=== PATIENT | male | born 1980 | race Caucasian/White ===

== ENCOUNTER 2019-02-11 10:58 | Emergency (ER) | payer BC ==
[2019-02-11 11:29] VITALS: BP 154/94
[2019-02-11 11:49] LABS: Influenza A Molecular NEGATIVE (Negative); Influenza B Molecular NEGATIVE (Negative)
--- NOTE | 2019-02-11 12:52 | UC ---
Respiratory Complaint HPI - HPI Summary HPI Summary: OVER 1 WEEK OF SORE THROAT, HEAD COLD, CONGESTION, COUGHING, RIGHT EAR PAIN AND OVERALL MALAISE. UP-TO-DATE FLU SHOT. NO FEVER. - History of Current Complaint Chief Complaint: UCRespiratory Stated Complaint: EAR PAIN, SORE THROAT,CHEST CONGESTION Time Seen by Provider: 02/11/19 11:19 Hx Obtained From: Patient Onset/Duration: Gradual Onset, Lasting Days, Still Present Timing: Constant Severity Initially: Moderate Severity Currently: Moderate Pain Intensity: 6 Pain Scale Used: 0-10 Numeric Character: Cough: Nonproductive Aggravating Factors: Nothing Alleviating Factors: Nothing Associated Signs And Symptoms: Positive: URI, Nasal Congestion. Negative: Fever , Chills, Wheezing - Allergies/Home Medications Allergies/Adverse Reactions: Allergies Allergy/AdvReac Type Severity Reaction Status Date / Time No Known Allergies Allergy Verified 01/02/16 18:00 PMH/Surg Hx/FS Hx/Imm Hx Cardiovascular History: Hypertension - Surgical History Surgical History: Yes Surgery Procedure, Year, and Place: tonsil/addnoids - Family History Known Family History: Positive: Cardiac Disease - Social History Alcohol Use: Rare Substance Use Type: None Smoking Status (MU): Former Smoker Review of Systems All Other Systems Reviewed And Are Negative: Yes Constitutional: Positive: Fatigue ENT: Positive: Sore Throat, Ear Ache, Nasal Discharge Respiratory: Positive: Cough Cardiovascular: Positive: Negative Gastrointestinal: Positive: Negative Genitourinary: Positive: Negative Physical Exam Triage Information Reviewed: Yes Appearance: Well-Appearing, No Pain Distress, Well-Nourished Vital Signs: Initial Vital Signs Temp 97.8 F 02/11/19 11:24 Pulse 77 02/11/19 11:24 Resp 20 02/11/19 11:24 BP 154/94 02/11/19 11:24 Pulse Ox 100 02/11/19 11:24 Laboratory Tests 02/11/19 02/11/19 11:33 11:38 Influenza A (Rapid) Negative Influenza B (Rapid) Negative Group A Strep Rapid Negative Vital Signs Reviewed: Yes Eyes: Positive: Conjunctiva Clear ENT: Positive: Hearing grossly normal, Pharynx normal, Other - LEFT TM NORMAL. RIGHT TM DULL, BULGING Neck: Positive: Supple, Nontender, No Lymphadenopathy Respiratory Exam: Normal Cardiovascular Exam: Normal Abdomen Description: Positive: Soft Musculoskeletal: Positive: No Edema Neurological: Positive: Alert Psychological: Negative: Age Appropriate Behavior Skin: Negative: Rashes Respiratory Course/Dx - Course Course Of Treatment: WILL COVER FOR ACUTE RHINOSINUSITIS AND EARLY RIGHT EAR INFECTION WITH AMOXICILLIN TWICE DAILY FOR 10 DAYS. REST, HYDRATE, OTC MEDICATIONS NEEDED. - Differential Dx/Diagnosis Provider Diagnosis: Acute rhinosinusitis Discharge ED - Sign-Out/Discharge Documenting (check all that apply): Patient Departure All imaging exams completed and their final reports reviewed: No Studies - Discharge Plan Condition: Stable Disposition: HOME Prescriptions: Amoxicillin PO (*) [Amoxicillin 500 MG CAP*] 1,000 mg PO Q12H #40 cap Patient Education Materials: Rhinosinusitis (ED) Referrals: Sánchez Alvarado MD [Primary Care Provider] - If Needed Additional Instructions: YOUR SYMPTOMS MAY BE VIRALLY MEDIATED BUT GIVEN THE LENGTH OF TIME YOU HAVE BEEN ILL WE WILL COVER YOU WITH ANTIBIOTICS. IF YOU START THE MEDICINE BE SURE TO TAKE IT FOR THE FULL COURSE. REST, HYDRATE, OTC MEDS NEEDED. SEEK FOLLOW- UP WITH YOUR PCP IF YOU ARE NOT IMPROVING OVER THE NEXT 1-2 WEEKS. USE OTC AFRIN FOR NASAL CONGESTION. 2 SPRAYS IN EACH NOSTRIL TWICE DAILY NEEDED. DO NOT USE FOR MORE THAN 3-4 DAYS IN A ROW TO PREVENT DEVELOPING REBOUND CONGESTION. - Billing Disposition and Condition Condition: STABLE Disposition: Home
== END 2019-02-11 12:05 | disposition home or self-care (01) ==
LOC: UCEAST 10:58
DX: J01.90 Acute sinusitis, unspecified (principal); J02.9 Acute pharyngitis, unspecified; I10 Essential (primary) hypertension; Z87.891 Personal history of nicotine dependence
CPT/HCPCS: 87651; 99212; G0463

== ENCOUNTER 2019-03-16 19:33 | Emergency (ER) | payer BC ==
--- NOTE | 2019-03-16 20:18 | ED ---
Neck Pain - HPI Summary HPI Summary: The patient is a 38 y/o male presenting to [facility] with a chief complaint of neck pain onset around 22:00 on the night of 03/14/2019. He reports that earlier in the day to when the pain began, he had been moving boxes around, but he didnt experience any known trauma to the neck or head at the time. Later that night, he had been at work, and the pain began. The next day, the pain continued and seemed to subside with Ibuprofen and Aspirin use as well as applying heat to the neck, but then the pain returned and has been constant rated 6/10 in severity while at rest. The pain worsened tonight while eating dinner with increased pain with chewing. The pain is aggravated with movement, especially with rotation and lateral movement to the right and somewhat to the left, when pain is rated 10/10. There is no pain with flexion or extension of the neck. He denies any fevers, chills, photophobia, or headache. He has not experienced any recent numbness or weakness but states an episode of numbness to the dorsal aspect of the right foot about six months ago which gradually resolved without treatment. He notes that he is recovering from a recent ear infection on the right. He has not had any previous issues with his neck. PMHx: HTN, kidney stones, T&A. Former smoker, rare EtOH, no substance use. Medications reviewed. Allergies noted. - History of Current Complaint Chief Complaint: EDNeckComplaint Stated Complaint: NECK PAIN PER PT Time Seen by Provider: 03/16/19 19:48 Hx Obtained From: Patient Onset/Duration Of Injury/Symptoms: Days - two Mechanism Of Injury: Other - unknown Timing: Constant Onset/Duration: Gradual Onset, Started days ago, Still Present Severity Initially: Moderate Severity Currently: Severe Pain Intensity: 10 Pain Scale Used: 0-10 Numeric Location: Discrete At: - right worse than left Character: Sharp Aggravating Factors: Movement - to the right and somewhat to the left Alleviating Factors: Other: - Ibuprofen, Aspirin, and head helped initially but not now Associated Signs & Symptoms: Negative: Fever, Weakness, Headache - Allergies/Home Medications Allergies/Adverse Reactions: Allergies Allergy/AdvReac Type Severity Reaction Status Date / Time No Known Allergies Allergy Verified 03/16/19 19:36 PMH/Surg Hx/FS Hx/Imm Hx Endocrine/Hematology History: Denies: Hx Diabetes Cardiovascular History: Reports: Hx Hypertension Denies: Hx Hypercholesterolemia History: Reports: Hx Kidney Stones Neurological History: Reports: Other Neuro Impairments/Disorders - syncope - Surgical History Surgical History: Yes Surgery Procedure, Year, and Place: tonsil/addnoids Infectious Disease History: No Infectious Disease History: Denies: Traveled Outside the [place] in Last 30 Days - Family History Known Family History: Positive: Cardiac Disease - Social History Alcohol Use: Rare Hx Substance Use: No Substance Use Type: Reports: None Hx Tobacco Use: Yes - e-cig Smoking Status (MU): Former Smoker - Additional Comments History Additional Comments: no previous neck injury, tonsillectomy & addenoidectomy Review of Systems - ROS Summary Review of Systems Summary: Home Medications Medication Instructions Recorded Confirmed Type Amoxicillin PO (*) [Amoxicillin 1,000 mg PO Q12H #40 cap 02/11/19 Rx 500 MG CAP*] Negative: Fever, Chills Negative: Photophobia Positive: Myalgia - neck pain worse on right, Decreased ROM - of neck to left and right but not Negative: Headache, Weakness, Numbness All Other Systems Reviewed And Are Negative: Yes Physical Exam - Summary Physical Exam Summary: General: Well-developed, Obese male. Appears to be in moderate discomfort at rest. HEENT: Normocephalic, Atraumatic. Eyes: Conjuctiva normal, PERRL. Oropharynx: Clear, mucous membranes moist, (-) exudates. Neck: Soft, limited ROM, tenderness in the right trapezius, spasm, (-) lymphadenopathy, (-) thyromegaly, (-) JVD. Cardiovascular: Normal sinus rhythm, (-) murmur. Lungs: Clear to auscultation bilaterally (-) wheezes, (-) rales, (-) rhonchi. Abdomen: Soft, non-tender, non-distended, (-) organomegaly, normal bowel sounds. Back: (-) CVA tenderness Extremities: No edema. Skin: Warm, dry, (-) rash. Neuro: Alert and oriented x3, no focal deficits. Psychiatric: Mood normal, Flat affect with limited vocabulary. Triage Information Reviewed: Yes Vital Signs On Initial Exam: Initial Vitals Temp Pulse Resp BP Pulse Ox 98.2 F 82 15 161/95 100 03/16/19 19:34 03/16/19 19:34 01/19/20 19:34 03/16/19 19:34 03/16/19 19:34 Vital Signs Reviewed: Yes Procedures - Sedation Patient Received Moderate/Deep Sedation with Procedure: No Diagnostics - Vital Signs Vital Signs Temp Pulse Resp BP Pulse Ox 03/16/19 19:34 98.2 F 82 15 161/95 100 - Laboratory Lab Statement: Any lab studies that have been ordered have been reviewed, and results considered in the medical decision making process. Re-Evaluation - Re-Evaluation First Eval Re-Evaluation Time: 20:50 Change: Improved Comment: I have discussed results with the patient and neck pain improved with medication. Discussed symptoms that warrant immediate return to ED. Neck Course/Dx - Course Course Of Treatment: 38-year-old male presents with severe right neck pain for 48 hours. He denies any known trauma. States he is packing boxes getting ready to move. Has tried multiple iggu-orf-ryxevsm medications including ibuprofen, naproxen, aspirin. Has tried heat multiple times. No history of neck problems. On physical exam there is significant tenderness to the right trapezius muscle. Normal strength sensation pulses and capillary refills upper extremities bilaterally. Ice pack applied to patients neck. Patient administered Toradol in the ED. Patient given six Valium, six Percocet, and antinflammatories for at-home use, without prescription. Ice and rest at home. Follow-up with PCP. Follow-up sooner for any worsening symptoms. - Diagnoses Provider Diagnoses: Neck pain Discharge ED - Sign-Out/Discharge Documenting (check all that apply): Patient Departure - Patient will be discharged home. - Discharge Plan Condition: Stable Disposition: HOME Patient Education Materials: Neck Pain (ED) Referrals: Sánchez Alvarado MD [Primary Care Provider] - 3 Days Additional Instructions: Please take medications as discussed. Apply ice as needed. Please follow up with your primary care physician within three days. Please return to ED for any new or worsening symptoms. - Billing Disposition and Condition Condition: STABLE Disposition: Home - Attestation Statements Document Initiated by Scribe: Yes Documenting Scribe: Brenda Clark Provider For Whom Lowellibe is Documenting (Include Credential): Dr. Darlene Cabello MD Scribe Attestation: Brenda Rawls, scribed for Dr. Darlene Cabello MD on 03/16/19 at 2203. Scribe Documentation Reviewed: Yes Provider Attestation: The documentation as recorded by the scribe, Brenda Clark accurately reflects the service I personally performed and the decisions made by me, Dr. Darlene Cabello MD Status of Scribe Document: Viewed
[2019-03-16] MEDS ORDERED: Ketorolac *IM* INJ* 60 MG/2 ML VIAL IM ONE (20:31)
[2019-03-16] MEDS ORDERED: oxyCODONE/Acetamin 5/325 MG* TAB PO PRN (20:37)
[2019-03-16] MEDS ORDERED: Diazepam TAB(*) 5 MG PO SCH (21:00)
[2019-03-16 21:22] VITALS: BP 139/87
== END 2019-03-16 21:20 | disposition home or self-care (01) ==
LOC: ED 19:33
DX: M54.2 Cervicalgia (principal); I10 Essential (primary) hypertension; Z87.891 Personal history of nicotine dependence
CPT/HCPCS: 96372; 99282; J1885

== ENCOUNTER 2019-03-19 16:09 | Emergency (ER) | payer BC ==
[2019-03-19 16:52] LABS: ABS Basophils 0.1 10^3/ul (0-0.2); ABS Eosinophils 0.1 10^3/ul (0-0.6); ABS Lymphocytes 1.6 10^3/ul (1.0-4.8); ABS Monocytes 0.7 10^3/ul (0-0.8); ABS Neutrophils 6.9 10^3/ul (1.5-7.7); Eosinophil % 0.6 %; Hematocrit 42 % (42-52); Hemoglobin 15.5 g/dL (14.0-18.0); Lymphocyte % 17.5 %; Mean Corpuscular HGB Conc 37 g/dL (31-36); Mean Corpuscular Hemoglobin 31 pg (27-31); Mean Corpuscular Volume 85 fL (80-94); Mean Platelet Volume 7.3 fL (7.4-10.4); Platelet Count 233 10^3/uL (150-450); Red Blood Count 4.94 10^6 /uL (4.18-5.48); Red Cell Distribution Width 13 % (10-15); White Blood Count 9.3 10^3/uL (3.5-10.8)
[2019-03-19 16:54] LABS: INR 1.07 (0.82-1.09)
[2019-03-19 17:02] LABS: Albumin 4.2 g/dL (3.2-5.2); Albumin/Globulin Ratio 1.2 (1-3); BUN/Creatinine Ratio 6.9 (8-20); Calcium 9.8 mg/dL (8.6-10.3); EGFR African American 99.5 (>60); EGFR Non-African American 82.2 (>60); Globulin 3.6 g/dL (2-4); Potassium 4.2 mmol/L (3.5-5.0); Total Bilirubin 0.6 mg/dL (0.2-1.0); Total Protein 7.8 g/dL (6.4-8.9)
--- OUTSIDE RECORDS SUMMARY | 2019-03-19 17:03 | XMS REPORT | Summary of Care ---
:1980 Author Organization [facility] Address [address] [address] Care Team Providers Name Role Phone Sánchez Alvarado Maximiliano Primary Care Provider Reason for Visit Reason Comments Neck Pain right side neck pain 5 days. pt went to ER sunday night. he received valium and toradol but has not had much relief. also received percocet. neck is still stiff and unablef to turn head jay the left. Encounter Details Date Type Department Care Team Description 03/18/2019 Office Visit [place] Malia Hassan, Neck muscle spasm ( Primary Dx); Practice PA-C Ear pain, right [address] [place], [place] [id number] [place] [id number] [phone] Allergies No Known Allergiesdocumented as of this encounter (statuses as of 03/18/2019) Medications Medication Sig Dispensed Refills Start Date End Date Status diazepam (VALIUM) 5 Take 5 mg by 0 Active MG Oral Tab mouth EVERY SIX HOURS NEEDED for Anxiety . OXYcodone-acetaminop Take 1 Tab 0 Active hen (PERCOCET) 5-325 by mouth MG Oral Tab EVERY FOUR HOURS NEEDED for Pain. cyclobenzaprine Take 1 Tab 20 Tab 0 03/18/2019 Active (FLEXERIL) 10 MG by mouth Oral Tab THREE TIMES DAILY NEEDED (neck pain). Tadalafil (CIALIS) Take 1 Tab 12 Tab 5 07/30/2015 Discontinued 20 MG Oral Tab by mouth 0 (Error) DAILY NEEDED (sex). Omeprazole 40 MG Take 1 Cap 30 Cap 5 01/05/2016 Discontinued Oral CAPSULE DELAYED by mouth 0 (Error) RELEASEIndications: DAILY. Acid indigestion ALPRAZolam (XANAX) Take 1 Tab 40 Tab 0 01/28/2016 Discontinued 0.5 MG Oral by mouth 0 (Error) TabIndications: THREE TIMES Situational anxiety DAILY NEEDED for anxiety. Max Daily Amount: 1.5 mg. Loperamide HCl Take by 0 Discontinued (IMODIUM A-D PO) mouth 0 (Error) NEEDED. ondansetron (ZOFRAN) Take 4 mg by 0 Discontinued 4 MG Oral Tab mouth EVERY 0 (Error) EIGHT HOURS NEEDED for nausea. documented as of this encounter (statuses as of 03/18/2019) Active Problems Problem Noted Date Essential hypertension, benign 10/31/2013 Obesity (BMI 30-39.9) 06/21/2012 Overview: bmi 34 10/2013 documented as of this encounter (statuses as of 03/18/2019) Immunizations Name Administration Dates Next Due Influenza (IM) W/Pres 11/17/2014 documented as of this encounter Social History Tobacco Use Types Packs/Day Years Used Date Former Smoker Smokeless Tobacco: Current User Comments: E-Cig Alcohol Use Drinks/Week oz/Week Comments No Sex Assigned at Date Recorded Not on file Job Start Date Occupation Industry Not on file Not on file Not on file Travel History Travel Start Travel End No recent travel history available. documented as of this encounter Last Filed Vital Signs Vital Sign Reading Time Taken Comments Blood Pressure 150/98 03/18/2019 10:48 AM EST Pulse 97 03/18/2019 10:48 AM EST Temperature 38.3 03/18/2019 10:48 AM EST C (101 F) Respiratory Rate - - Oxygen Saturation 98% 03/18/2019 10:48 AM EST Inhaled Oxygen Concentration - - Weight 107 kg (236 lb) 03/18/2019 10:48 AM EST Height 177.8 cm (5' 10") 03/18/2019 10:48 AM EST Body Mass Index 33.86 03/18/2019 10:48 AM EST documented in this encounter Patient Instructions Patient InstructionsDoMalia roach PA-C - 03/18/2019 10:40 AM ESTEscribed flexeril 10mg up to 3 x daily -- cautioned patient will cause drowsiness Apply heat No strenuous activity x 1 week OTC Ibuprofen 600mg every 6 hrs, take with food Call if not improving or with any questions or concerns documented in this encounter Progress Notes Malia Padilla PA-C - 03/18/2019 10:40 AM EST PATIENT: Keyon Mcgill : 1980 DATE OF SERVICE: 03/18/2019 REFERRING PRACTITIONER: Self-Referred PRIMARY CARE PROVIDER: Sánchez Alvarado CHIEF COMPLAINT: Chief Complaint Patient presents with Neck Pain right side neck pain 5 days. pt went to ER sunday night. he received valium and toradol but has not had much relief. also received percocet. neck is still stiff and unablef to turn head jay the left. Subjective HISTORY OF PRESENT ILLNESS: Keyon Mcgill is a 38-y.o. male who presents with right neck pain x 5 days Went [place] [facility] [place], was given valium and toradol -- minor relief Was given 6 percocet 5/325mg and 6 valium 5mg to use at home Today neck is still stiff, hurts to turn to left, can't find comfortable position Denies recent injury or strenuous activity Has heat and ice -- temporary relief Has been taking OTC aleve and ibuprofen -- temporary relief Denies fever, chills, nausea, vomiting, diarrhea, chest pains, SOB, numbness/ tingling in hands No past medical history on file. No past surgical history on file. No family history on file. Current Outpatient Medications Medication Sig cyclobenzaprine (FLEXERIL) 10 MG Oral Tab Take 1 Tab by mouth THREE TIMES DAILY NEEDED (neck pain). diazepam (VALIUM) 5 MG Oral Tab Take 5 mg by mouth EVERY SIX HOURS NEEDED for Anxiety . OXYcodone-acetaminophen (PERCOCET) 5-325 MG Oral Tab Take 1 Tab by mouth EVERY FOUR HOURS ASNEEDED for Pain. No current facility-administered medications for this visit. No Known Allergies Social History Socioeconomic History Marital status: Spouse name: Not on file Number of children: Not on file Years of education: Not on file Highest education level: Not on file Occupational History Not on file Social Needs Financial resource strain: Not on file Food insecurity Worry: Not on file Inability: Not on file Transportation needs Medical: Not on file Non-medical: Not on file Tobacco Use Smoking status: Former Smoker Smokeless tobacco: Current User Tobacco comment: E-Cig Substance and Sexual Activity Alcohol use: No Drug use: No Sexual activity: Yes Partners: Female Lifestyle Physical activity Days per week: Not on file Minutes per session: Not on file Stress: Not on file Relationships Social connections Talks on phone: Not on file Gets together: Not on file Attends jehovah's witness service: Not on file Active member of club or organization: Not on file Attends meetings of clubs or organizations: Not on file Relationship status: Not on file Intimate partner violence Fear of current or ex partner: Not on file Emotionally abused: Not on file Physically abused: Not on file Forced sexual activity: Not on file Other Topics Concern Back Care Not Asked Bike Helmet Not Asked Blood Transfusions Not Asked Caffeine Concern Not Asked Exercise Yes Hobby Hazards Not Asked International Travel Not Asked Service Not Asked Occupational Exposure Not Asked Seat Belt Not Asked Self-Exams Not Asked Sleep Concern Not Asked Special Diet Not Asked Stress Concern Not Asked Weight Concern Not Asked Social History Narrative 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 Lives in [facility] area REVIEW OF SYSTEMS: Skin: negative skin lesions Eyes: negative visual blurring Ears/Nose/Throat: negative rhinorrhea or sore throat Respiratory: negative cough Cardiovascular: negative chest pain Gastrointestinal: negative abdominal pain, constipation, diarrhea, nausea or vomiting Genitourinary: negative burning on urination, dysuria Musculoskeletal: positive neck pain -- see hpi Neurologic: negative numbness or tingling of feet or hands Psychiatric: positive anxiety Hematologic/Lymphatic/Immunologic: negative allergies Endocrine: negative diabetes or hot flashes/sweats Objective PHYSICAL EXAMINATION: VITALS: BP (!) 150/98 (BP Location: Right arm, Patient Position: Sitting) | Pulse 97 | Temp 101 F (38.3 C) | Ht 5' 10" (1.778 m) | Wt 236 lb ( 107 kg) | SpO2 98% | BMI 33.86 kg/m Body mass index is 33.86 kg/m. General appearance - alert, moderate distress, cooperative, oriented times 3 Skin - Skin color, texture, turgor normal. No rashes or lesions. Head - Normocephalic. No masses, lesions, tenderness or abnormalities Eyes - conjunctivae/corneas clear. PERRL, EOM's intact. Ears - Right TM is bulging. Canal is normal. Left TM and Canal are normal Oropharynx: positive findings: mild oropharyngeal erythema, post nasal drip present Neck - Reduced ROM -- flexion, extension, rotating to left and right. No cervical or supraclavicularadenopathy. Lungs - Good diaphragmatic excursion. Lungs clear. Chest symmetrical. Normal breath sounds. Heart - RRR. No murmurs, clicks or gallops. No peripheral edema. . IMPRESSION: ICD-9-CM ICD-10-CM 1. Neck muscle spasm 728.85 M62.838 2. Ear pain, right 388.70 H92.01 Plan PLAN: Escribed flexeril 10mg up to 3 x daily -- cautioned patient will cause drowsiness Apply heat No strenuous activity x 1 week OTC Ibuprofen 600mg every 6 hrs, take with food Call if not improving or with any questions or concerns Author: Malia Padilla PA-C 03/18/2019 10:43 documented in this encounter Plan of Treatment Health Maintenance Due Date Last Done Comments DTaP/Tdap/Td Vaccines (1 - Tdap) 10/07/1990 INFLUENZA VACCINE (#1) 2018 11/17/2014 DEPRESSION SCREENING 03/18/2020 03/18/2019 HEPATITIS A IMMUNIZATION SERIES Aged Out No longer eligible based on patient's age to complete this topic HPV IMMUNIZATION SERIES Aged Out No longer eligible based on patient's age to complete this topic MENINGOCOCCAL VACCINE IMM Aged Out No longer eligible based on patient's age to complete this topic PNEUMOCOCCAL 0-64 YRS Aged Out No longer eligible based on patient's age to complete this topic documented as of this encounter Goals Goal Patient Goal Associated Recent Patient-Stated? Author Type Problems Progress Blood Pressure Blood Pressure Essential 150/98 No [place], < 140/90 hypertension, (03/18/2019 Sánchez Viera, benign 10:48 AM EST) Note: Hypertension Care Plan Based on the patient's clinical history and according to JNC 8 guidelines target blood pressure goal is less than 140/90. Based on the patient's last blood pressure of BP: 120/80 the patient is at at goal. As your provider, it is important that I advise you regarding: your current medications and help you with any challenges you may face taking your medications as directed (ex. instructions, cost, side effects, and interactions). Important lifestyle changes: exercise, weight reduction, diet and dietary sodium reduction your clinical goals and how you can achieve success: weight reduction, exercise plan and diet improvements medication management: N/A diet only patient education/self-management tools provided: Current self-management tools adequate To successfully manage my Hypertension I will: monitor my blood pressure daily, understanding that my goal is less than 140/ 90 per my healthcare provider's recommendation. I will schedule an appointment with my provider if consistent abnormal readings greater than 160/100. take medications every day as prescribed by my healthcare provider and if unable to take them I will discuss with my provider. monitor for symptoms of chest pain, chest tightness/pressure, irregular heartbeat, persistent dizziness, radiating arm pain, and neck or jaw pain. If any of these symptoms are noticed I will seek medical attention immediately by calling 911 exercise/walk 30 minutes 7 day(s) per week. If I experience chest pain, chest tightness, or shortness of breath, I will seek medical attention immediately. follow a diet rich in fruits, vegetables, and low-fat dairy products with reduced content of saturated & total fat. I will reduce my sodium intake daily. An example is the DASH diet. To obtain more information please refer to the DASH Eating Plan listed in Educational Resources. record my blood pressure results. Elizabeth is safe and secure way for you to do this in your medical record online. try to obtain an ideal body weight. My recent weight was Weight: 219 lb ( 99.3 kg). My weight loss goal for my next office visit is 200 . limit alcohol consumption. For men two drinks per day and women one drink per day. if currently smoking, will discuss how to quit smoking with my healthcare provider and work towards quitting. Educational Resources: National Heart, Lung, & Blood [place] http://nhlbi.nih.gov/hbp/index.html The DASH Diet Eating Plan http://www.nhlbi.nih.gov/health/health-topics/ topics/dash/ Academy of Nutrition & DIetetics http://eatright.org National Smoking Cessation Site http://smokefree.gov Blood Pressure < Blood Pressure 150/98 (03/18/2019 10:48 No Sánchez Alvarado, 140/90 AM EST) Note: This is an individualized treatment (blood pressure) goal for Keyon Mcgill: Displayed above (on the left) is your goal for blood pressure control. Your most recent blood pressure is also shown above, on the right. You should try to achieve blood pressures that are lower than your goal listed above (on the left). Weight loss vs. 18 mo Lifestyle 0 (03/18/2019 10:48 AM Sánchez Maravilla MD max (lbs) >= 10 EST) Note: This is an individualized lifestyle goal for Keyon Mcgill: Your body mass index (BMI) is more than 30. You should lose weight. A reasonable starting goal is to lose 10 pounds. Displayed above is how many pounds you have lost thus far towards your 10 pound weight loss goal. Take all prescribed medications as Self-management Sánchez Maravilla MD directed Note: This is an individualized self-management goal for Keyon Mcgill: Please take all prescribed medications as directed. 1. Do not skip doses. If you cannot afford your medications, talk with your doctor. 2. Use a pill reminder system such as a pill box if needed. Your pharmacist can help you with this. 3. Contact your Pharmacy 5 days before your medication runs out. If you cannot take your medications for any reasons, talk with your doctor. 4. Please bring all of your medication bottles and inhalers (or a list of all your medications/inhalers) with you to every visit. Potential barriers to meeting all of your care plan goals will continue to be addressed on an ongoing basis. documented as of this encounter Results Not on filedocumented in this encounter Visit Diagnoses Diagnosis Neck muscle spasm Spasm of muscle Ear pain, right documented in this encounter Insurance Payer Benefit Plan / Subscriber ID Effective Dates Phone Address Type Group [employer]I [employer] xxxxxxxxxxxx 2014-Present [employer] Name Account Type Relation to Date of Phone Billing Patient Address Keyon Mcgill Personal/Family 1980 [id number] (Home) [address] ([place]) [id number] documented as of this encounter
--- NOTE | 2019-03-19 17:04 | ED ---
Neck Pain - HPI Summary HPI Summary: The patient is a 38 y/o male presenting to [facility] accompanied by bianca with a chief complaint of right-sided neck pain onset five days ago. He reports that the neck pain began a few days while at work without any known trauma or previous injury. The next day, the pain worsened with difficulty moving the neck despite medication use. He then came into the ED the following day and was given medication for pain management (Toradol, Valium, Percocet) on 03/16/2019, but he had the medications changed yesterday at [place] office as the medications didnt seem to help. He is now experiencing fever, chills, bilateral knee pain worse with ambulation, coldness of his hands and feet, and decreased ROM of the neck (laterally, similar to prior). He denies any photophobia, headache or cough. Symptoms currently rated 5/10 in severity. Last used Ibuprofen at 0800 this morning. His states that he has been more irritable than usual. He notes recent right ear infection with finished Amoxicillin course, but the ear ache is still present. He is currently in the process of moving and has been lifting a lot of heavy boxes. He has not been tested for flu. No known tick bites. PMHx: HTN, kidney stones, ear tubes, T&A. Former smoker, rare EtOH, no substance use. Medications reviewed. Allergies noted. - History of Current Complaint Chief Complaint: EDNeckComplaint Stated Complaint: FEVER/NECK PAIN PER PT Time Seen by Provider: 03/19/19 16:19 Hx Obtained From: Patient Onset/Duration Of Injury/Symptoms: Days Mechanism Of Injury: No Known Trauma Timing: Constant Onset/Duration: Sudden Onset, Started days ago, Still Present Severity Initially: Mild Severity Currently: Moderate Pain Intensity: 5 Pain Scale Used: 0-10 Numeric Character: Aching Aggravating Factors: Movement Alleviating Factors: Nothing Associated Signs & Symptoms: Positive: Fever - Allergies/Home Medications Allergies/Adverse Reactions: Allergies Allergy/AdvReac Type Severity Reaction Status Date / Time No Known Allergies Allergy Verified 03/16/19 19:36 PMH/Surg Hx/FS Hx/Imm Hx Endocrine/Hematology History: Denies: Hx Diabetes Cardiovascular History: Reports: Hx Hypertension Denies: Hx Hypercholesterolemia History: Reports: Hx Kidney Stones Neurological History: Reports: Other Neuro Impairments/Disorders - syncope - Surgical History Surgical History: Yes Surgery Procedure, Year, and Place: tonsil/addnoids, eustachian tubes Infectious Disease History: No Infectious Disease History: Denies: Traveled Outside the [place] in Last 30 Days - Family History Known Family History: Positive: Cardiac Disease - Social History Alcohol Use: Rare Hx Substance Use: No Substance Use Type: Reports: None Hx Tobacco Use: Yes - e-cig Smoking Status (MU): Former Smoker Review of Systems Positive: Fever, Chills Negative: Photophobia Positive: Ear Ache - right Negative: Cough Positive: Arthralgia - knees, neck, Decreased ROM - neck Neurological: Other - coldness of feet and hands All Other Systems Reviewed And Are Negative: Yes Physical Exam - Summary Physical Exam Summary: Constitutional: Well-developed, Well-nourished, Alert. (-) Distressed Skin: Warm, Dry HENT: Normocephalic; Atraumatic, R TM bulging, L TM corea/pearly Eyes: Conjunctiva normal Neck: Right paraspinal tenderness, Limited lateral movement of the neck, (-) JVD , (-) Stridor, (-) Nuchal rigidity Cardio: Rhythm regular, rate normal, Heart sounds normal; Intact distal pulses; Radial pulses are 2+ and symmetric. (-) Murmur Pulmonary/Chest wall: Effort normal. (-) Respiratory distress, (-) Wheezes, (-) Rales Abd: Soft, (-) tenderness, (-) Distension, (-) Guarding, (-) Rebound Musculoskeletal: (-) Edema, full ROM knees, no erythema or swelling noted. Lymph: (-) Cervical adenopathy Neuro: Alert, Oriented x3 Psych: Mood and affect Normal Triage Information Reviewed: Yes Vital Signs On Initial Exam: Initial Vitals Temp Pulse Resp BP Pulse Ox 98.6 F 96 20 147/110 99 03/19/19 16:10 03/19/19 16:10 03/19/19 16:10 03/19/19 16:10 03/19/19 16:10 Vital Signs Reviewed: Yes Procedures - Sedation Patient Received Moderate/Deep Sedation with Procedure: No Diagnostics - Vital Signs Vital Signs Temp Pulse Resp BP Pulse Ox 03/19/19 16:10 98.6 F 96 20 147/110 99 - Laboratory Lab Results: Lab Results 03/19/19 03/19/19 Range/Units 16:40 16:40 WBC 9.3 (3.5-10.8) 10^3/uL RBC 4.94 (4.18-5.48) 10^6 /uL Hgb 15.5 (14.0-18.0) g/dL Hct 42 (42-52) % MCV 85 (80-94) fL MCH 31 (27-31) pg MCHC 37 H (31-36) g/dL RDW 13 (10-15) % Plt Count 233 (150-450) 10^3/uL MPV 7.3 L (7.4-10.4) fL Neut % (Auto) 74.2 % Lymph % (Auto) 17.5 % [place] % (Auto) 7.1 % Eos % (Auto) 0.6 % Baso % (Auto) 0.6 % Absolute Neuts (auto) 6.9 (1.5-7.7) 10^3/ul Absolute Lymphs (auto) 1.6 (1.0-4.8) 10^3/ul Absolute Monos (auto) 0.7 (0-0.8) 10^3/ul Absolute Eos (auto) 0.1 (0-0.6) 10^3/ul Absolute Basos (auto) 0.1 (0-0.2) 10^3/ul Absolute Nucleated RBC 0.0 10^3/ul Nucleated RBC % 0.0 INR (Anticoag Therapy) 1.07 (0.82-1.09) Result Diagrams: 03/19/19 16:40 03/19/19 16:40 Lab Statement: Any lab studies that have been ordered have been reviewed, and results considered in the medical decision making process. - Radiology CXR Radiology Interpretation Completed By: Radiologist Summary of Radiographic Findings: Impression: Stigmata of potential obstructive lung disease. No evidence for pneumonia. ED physician has reviewed this report. Re-Evaluation - Re-Evaluation First Eval Re-Evaluation Time: 18:20 Comment: We discussed all results thus far and plan for d/c Neck Course/Dx - Course Course Of Treatment: 38 y/o male w hx recurrent otitis, recent R ear infection, p/w neck pain, arthralgias, fever. - VS: afebrile. PE: bulging R TM. No nuchal rigidity, does have R sided paraspinal/trapezius tenderness and pain w lateral neck movement. No rashes. No erythema of knees, full ROM. - regarding recurrent ear pain, does have bulging of the right TM, recently on amoxicillin, we'll change Augmentin. - Regarding bilateral knee pain, L>R, full ROM motion, no erythema or swelling to suggest septic joint. Does have elevated CRP, suspect this could be secondary to viral process. - Regarding neck pain, patient reports several days of right-sided neck pain, no genetic cause. Patient does not have nuchal rigidity on exam does have some pain with lateral movement of the neck. Known trauma, patient does not have risk factors for osteomyelitis. Imaging deferred. Discussed with patient concern for further imaging (MRI) if he has persistent severe neck pain as well as infectious symptoms. - regarding infectious symptoms including fever, arthralgias, neck pain, discussed the patient's lower suspicion for meningitis. Patient does not have typical signs of nuchal rigidity, headache and fever. I do not suspect bacterial meningitis as he is well appearing, has had several days of symptoms. He could have viral meningitis, however this is low on my differential. Discussed risks and benefits of a lumbar puncture, will defer at this time. He will return for any new symptoms or worsening symptoms. - Diagnoses Provider Diagnoses: Otitis media, right, Arthralgia, Neck pain on right side Discharge ED - Sign-Out/Discharge Documenting (check all that apply): Patient Departure - Patient will be discharged home. - Discharge Plan Condition: Stable Disposition: HOME Prescriptions: Amoxicillin/Clavulanate TAB* [Augmentin TAB 875*] 875 mg PO BID 7 Days #14 tab Patient Education Materials: Cervical Strain (ED), Ear Infection (ED), Arthralgia (ED) Referrals: Sánchez Alvarado MD [Primary Care Provider] - 3 Days Additional Instructions: You were seen in the emergency department for neck pain, fevers, feeling unwell. Your labs did not show any evidence of acute infection. Your chest x- ray did not show pneumonia. Your CRP was elevated. While the cause is unclear for your symptoms, we do not believe he requires you to stay in the hospital. If you have worsening neck pain, fevers, headache, confusion you need to return to the ER immediately. Please follow up with your primary care doctor in next 2-3 days. It was a pleasure taking care of you today. - Billing Disposition and Condition Condition: STABLE Disposition: Home - Attestation Statements Document Initiated by Anabelle: Yes Documenting Scribe: Brenda Clark Provider For Whom Anabelle is Documenting (Include Credential): Dr. Horace Rowland MD Scribe Attestation: I, Brenda Clark, scribed for Dr. Horace Rowland MD on 03/19/19 at 1844. Scribe Documentation Reviewed: Yes Provider Attestation: The documentation as recorded by the Brenda marion accurately reflects the service I personally performed and the decisions made by me, Dr. Horace Rowland MD Status of Scribe Document: Viewed
[2019-03-19] MEDS ORDERED: NS 0.9% 1000 ML** 1,000 ML IV ONE (17:05)
[2019-03-19] MEDS ORDERED: Ketorolac INJ* 30 MG/ML 1 ML VIAL IV ONE (17:05)
[2019-03-19 17:31] LABS: Influenza A Molecular NEGATIVE (Negative); Influenza B Molecular NEGATIVE (Negative)
[2019-03-19 17:31] LABS: C Reactive Protein 81.68 mg/L (<8.01)
[2019-03-19] MEDS ORDERED: Amoxicillin/Clavulanate TAB* 875 MG PO ONE (18:29)
[2019-03-19 18:52] VITALS: BP 128/80
== END 2019-03-19 19:12 | disposition home or self-care (01) ==
LOC: ED 16:09
DX: H66.91 Otitis media, unspecified, right ear (principal); M54.2 Cervicalgia; M25.50 Pain in unspecified joint; R50.9 Fever, unspecified; H92.01 Otalgia, right ear; Z87.891 Personal history of nicotine dependence; I10 Essential (primary) hypertension; Z87.442 Personal history of urinary calculi
CPT/HCPCS: 36415; 71046; 80053; 85025; 85610; 86140; 99283; A9270-GY; J1885